=== PATIENT | female | born 1930 | race African-American/Black ===

== ENCOUNTER 2017-02-13 14:18 | Emergency (ER) | payer MEDICARE ==
[~2017-02-13] VITALS: Ht 167.6 cm; Wt 117.0 kg
[~2017-02-13 14:18] MED LIST: ACET500T33 PO; ALLO300T PO; ALPR0.25 PO; ALPR0.5T PO; AMLO2.5T PO; AMLO5TAB4 PO; ASPI-482 PO; ASPI81TA9 PO; ATOR10TA60 PO; ATOR20TA58 PO; BUDE10.2 IH; CARV12.52 PO; CETI10CA PO; CETI10TA22 PO; DICL100G7 TP; ESTR0.3T PO; ESTR0.62 PO; FEBU40TA PO; FERR-26 PO; FERR325T72 PO; FLUT16SP2 NS; FURO40TA4 PO; HYDR-2666 PO; Hydrocodone/Acetaminophen PO; LEVO500T38 PO; METO2.5T5 PO; MONT10TA9 PO; PANT40GR PO; POLY17PO5 PO; POTA10TA10 PO; POTA20LI PO; PRED5TAB PO; SENN-6 PO; SPIR25TA PO; TRAM50TA PO; UBID100C12 PO
[2017-02-13] MEDS ORDERED: PHENAZOPYRIDINE 200 MG TABLET. PO ONE (15:15)
[2017-02-13 15:34] LABS: BASO % 0 % (0-3); EOS % 1 % (0-3); HEMOGLOBIN 11.1 g/dL (12.0-15.5); LYMPH # 0.9 x10^3/uL (1.0-4.8); LYMPH % 12 % (24-48); MEAN CORPUSCULAR HEMOGLOBIN 28 pg (25-35); MEAN CORPUSCULAR HGB CONC 32 g/dL (31-37); MEAN CORPUSCULAR VOLUME 89 fL (79-100); MONO % 9 % (0-9); NEUT % 78 % (31-73); PLATELET COUNT 185 x10^3/uL (140-400); RED BLOOD COUNT 3.92 x10^6/uL (3.50-5.40); WHITE BLOOD COUNT 7.6 x10^3/uL (4.0-11.0)
[2017-02-13 15:37] LABS: BILIRUBIN,URINE NEGATIVE (NEG); GLUCOSE,URINE NEGATIVE (NEG); NITRITE,URINE NEGATIVE (NEG); PROTEIN,URINE NEGATIVE (NEG-TRACE); UROBILINOGEN,URINE 0.2 mg/dL (0.2 mg/dL)
[2017-02-13 15:44] LABS: BACTERIA,URINE MANY /HPF (0-FEW); RBC,URINE 0 /HPF (0-2); SQUAMOUS EPITHELIAL CELL,UR MANY /LPF
[2017-02-13 15:49] LABS: CALCIUM 10.3 mg/dL (8.5-10.1); CREATININE 1.1 mg/dL (0.6-1.0); GFR 56.9; POTASSIUM 4.6 mmol/L (3.5-5.1)
[2017-02-13] MEDS ORDERED: CIPROFLOXACIN HCL 250 MG TABLET PO ONE (16:15)
[2017-02-13 16:20] VITALS: BP 115/60
[2017-02-13] MEDS ORDERED: CIPR500T PO (16:24)
[2017-02-13] MEDS ORDERED: PHEN100T82 PO (16:24)
--- NOTE | 2017-02-13 16:24 | PHYS DOC ---
Past Medical History Past Medical History: Anemia, CHF, Hypertension, DE, UTI Past Surgical History: Angioplasty, Other Additional Past Surgical Histo: 2 STENT PLACEMENTS, EAR SURG Alcohol Use: None Drug Use: None Adult General Chief Complaint Chief Complaint: PAIN ON URINATION HPI HPI Patient is a 86 year old female who presents with dysuria. Patient reports the past week she has had burning on urination as well as urinary frequency. She reports her low back has been aching over this time, and she has mild suprapubic pain. 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 She has not taken anything for symptoms. No fever. Review of Systems Review of Systems Constitutional: Denies fever or chills Eyes: Denies change in visual acuity or eye pain HENT: Denies nasal congestion or sore throat Respiratory: Denies cough or shortness of breath Cardiovascular: Denies chest pain GI: Mild suprapubic pain. Denies nausea, vomiting, bloody stools or diarrhea : Dysuria, frequency Musculoskeletal: Low back ache Integument: Denies rash or skin lesions Neurologic: Denies headache, focal weakness or sensory changes Current Medications Current Medications Current Medications Medications (Trade) Dose Ordered Sig/Zuri Start Time Stop Time Status Last Admin Dose Admin Ciprofloxacin (Cipro) 500 mg 1X ONCE 02/13/17 16:15 02/13/17 16:16 DC 02/13/17 16:19 500 MG Phenazopyridine HCl (Pyridium) 200 mg 1X ONCE 02/13/17 15:15 02/13/17 15:17 DC 02/13/17 15:37 200 MG Allergies Allergies Allergies Coded Allergies Type Severity Reaction Last Updated Verified Penicillins Allergy Severe Anaphylaxis 03/13/15 Yes febuxostat Allergy Intermediate 03/13/15 No Physical Exam Physical Exam Constitutional: Well developed, well nourished, no acute distress, non-toxic appearance HENT: Normocephalic, atraumatic, bilateral external ears normal Eyes: EOMI, conjunctiva normal, no discharge Neck: Normal range of motion, no stridor Cardiovascular: Heart rate normal, regular rhythm, no murmur Lungs & Thorax: Bilateral breath sounds clear to auscultation Abdomen: Bowel sounds normal, soft, non-distended, no TTP Skin: Warm, dry, no erythema, no rash Back: No tenderness, no skin lesion or deformity noted Extremities: No obvious deformity, no edema Neurologic: Alert and oriented X 3, BLE strength and sensation intact and symmetrical, no gross deficits noted Psychologic: Affect normal, judgement normal, mood normal Current Patient Data Vital Signs Vital Signs Date Time Temp Pulse Resp B/P Pulse Ox O2 Delivery O2 Flow Rate FiO2 02/13/17 16:20 60 15 115/60 95 Room Air 02/13/17 14:26 98 98.0 Lab Values Laboratory Tests Test 02/13/17 14:40 02/13/17 15:20 Urine Collection Type Void Urine Color Yellow Urine Clarity Clear Urine pH 6.0 Urine Specific [place] 1.020 Urine Protein Negativemg/dL (NEG-TRACE) Urine Glucose (UA) Negativemg/dL (NEG) Urine Ketones (Stick) Negativemg/dL (NEG) Urine Blood Negative (NEG) Urine Nitrite Negative (NEG) Urine Bilirubin Negative (NEG) Urine Urobilinogen Dipstick 0.2mg/dL (0.2 mg/dL) Urine Leukocyte Esterase Moderate (NEG) Urine RBC 0/HPF (0-2) Urine WBC 5-10/HPF (0-4) Urine Squamous Epithelial Cells Many/LPF Urine Bacteria Many/HPF (0-FEW) Urine Mucus Marked/LPF White Blood Count 7.6x10^3/uL (4.0-11.0) Red Blood Count 3.92x10^6/uL (3.50-5.40) Hemoglobin 11.1g/dL (12.0-15.5) L Hematocrit 35.0% (36.0-47.0) L Mean Corpuscular Volume 89fL (79-100) Mean Corpuscular Hemoglobin 28pg (25-35) Mean Corpuscular Hemoglobin Concent 32g/dL (31-37) Red Cell Distribution Width 18.0% (11.5-14.5) H Platelet Count 185x10^3/uL (140-400) Neutrophils (%) (Auto) 78% (31-73) H Lymphocytes (%) (Auto) 12% (24-48) L Monocytes (%) (Auto) 9% (0-9) Eosinophils (%) (Auto) 1% (0-3) Basophils (%) (Auto) 0% (0-3) Neutrophils # (Auto) 6.0x10^3uL (1.8-7.7) Lymphocytes # (Auto) 0.9x10^3/uL (1.0-4.8) L Monocytes # (Auto) 0.7x10^3/uL (0.0-1.1) Eosinophils # (Auto) 0.0x10^3/uL (0.0-0.7) Basophils # (Auto) 0.0x10^3/uL (0.0-0.2) Sodium Level 140mmol/L (136-145) Potassium Level 4.6mmol/L (3.5-5.1) Chloride Level 106mmol/L (98-107) Carbon Dioxide Level 30mmol/L (21-32) Anion Gap 4 (6-14) L Blood Urea Nitrogen 16mg/dL (7-20) Creatinine 1.1mg/dL (0.6-1.0) H Estimated GFR (Cockcroft-Gault) 56.9 Glucose Level 119mg/dL (70-99) H Calcium Level 10.3mg/dL (8.5-10.1) H Laboratory Tests 02/13/17 15:20 Laboratory Tests 02/13/17 15:20 EKG EKG [] Radiology/Procedures Radiology/Procedures [] Course & Med Decision Making Course & Med Decision Making Pertinent Labs and Imaging studies reviewed. (See chart for details) Patient is 86-year-old female who presents with dysuria. Likely UTI. Will check labs, UA to evaluate. Dose of Pyridium ordered for pain control. Blood work largely unremarkable. UA when considered in light of patient's symptoms consistent with UTI. Dose of oral Cipro ordered in ED. Will discharge with prescription for same. Given instructions for follow-up and return precautions. Dragon Disclaimer Dragon Disclaimer This electronic medical record was generated, in whole or in part, using a voice recognition dictation system. Departure Departure Impression: Primary Impression: UTI (urinary tract infection) Disposition: 01 HOME, SELF-CARE Condition: STABLE Referrals: KATHIA BYNUM MD (PCP) Patient Instructions: Urinary Tract Infection Additional Instructions: Thank you for allowing us to provide care today in the Emergency Department. Take the provided medication as directed. Schedule a follow up appointment with your primary care doctor. Return promptly to the Emergency Department if you develop any new or concerning symptoms. Scripts Phenazopyridine Hcl (Pyridium)100 Mg [id number] Mg PO TID PRN burning on urination #6 TAB Prov:CHINTAN ROWAN MD 02/13/17 Ciprofloxacin Hcl 500 Mg Tablet1 Tab PO BID #20 TAB Prov:CHINTAN ROWAN MD 02/13/17 CHINTAN ROWAN MD Feb 13, 2017 16:24
== END 2017-02-13 16:30 | disposition home or self-care (01) ==
LOC: ER 14:18
DX: N39.0 Urinary tract infection, site not specified (principal); I11.0 Hypertensive heart disease with heart failure; I50.9 Heart failure, unspecified; G62.9 Polyneuropathy, unspecified; I25.2 Old myocardial infarction; Z87.440 Personal history of urinary (tract) infections; Z95.5 Presence of coronary angioplasty implant and graft; Z88.0 Allergy status to penicillin; Z88.8 Allergy status to other drugs, medicaments and biological substances; Z86.2 Personal history of diseases of the blood and blood-forming organs and certain disorders involving the immune mechanism
CPT/HCPCS: 36415; 80048; 81001; 85027; 87086; 99284